=== PATIENT | female | born 1935 | race Caucasian/White ===

== ENCOUNTER 2016-12-15 12:50 | Inpatient (IN) | payer MEDICARE, BC ==
[~2016-12-15] VITALS: Ht 157.5 cm; Wt 59.1 kg
[~2016-12-15 12:50] MED LIST: ADVIL200 MG PO; AMLOPIDINE PO; ASPIR-LOW81 MG PO; ASPIRIN 81M81 MG/TA2 PO; BAUSCH OT; CALCIUM CITRAT200 MG PO; CALTRATE 600 +1 TAB PO; CENTRUM SILVER1 TA1 PO; CIPRO 500MG TA500 MG PO; COLACE50 MG PO; COUMADIN; DARVOCET-N-101 UDTAB PO; ELITE MAGNESIUM1 TAB PO; FERROUS SU325 MG/TAB PO; FLAGYL500 MG PO; GENTEAL0.32; GLUCOSAMINE & C1 CA2 PO; GLUCOSAMINE/CHONDROI PO; HYZAAR; HYZAAR 25 MG-101 TAB PO; KLOR-CON 1010 MEQ PO; MIRALAX PA17 GM/Dose PO; NORCO 325 MG-101 TAB PO; NORCO 325 MG-7.1 TAB PO; NORVASC 5MG5 MG/TAB PO; PERCOCET 325 MG1 TA2 PO; SENOKOT TABLET1 EA PO; SENOKOT8.6 MG PO; SINGULAIR 110 MG/TAB PO; SINGULAIR PO; TYLENOL 500MG500 MG PO; VICODIN 5/5001 UDTAB PO; ZETIA 10MG TAB10 MG PO; ZETIA10 MG PO; [UNRECOGNIZED DRUG - OTHER] OT
[2017-01-27] VITALS (11 sets, daily range): BP systolic 126–152; BP diastolic 60–75; PULSE 53–83; TEMP 97.8–98.2
[2017-01-27] MEDS ORDERED: HYZAAR 25 MG-101 TAB PO (06:54)
[2017-01-27] MEDS ORDERED: NORVASC 5MG5 MG/TAB PO (06:54)
[2017-01-27] MEDS ORDERED: CALCIUM 600-D 61 TAB PO (06:56)
[2017-01-27] MEDS ORDERED: MULTI VITAMINS1 TAB PO (06:56)
[2017-01-27] MEDS ORDERED: KLOR-CON M2020 MEQ PO (06:56)
[2017-01-27] MEDS ORDERED: ZETIA 10MG TAB10 MG PO (06:57)
[2017-01-27] MEDS ORDERED: MAGNESIUM250 M1 PO (06:57)
[2017-01-27] MEDS ORDERED: ASPIRIN E.C. 8181 MG PO (06:57)
[2017-01-27] MEDS ORDERED: COLACE 100100 MG/CAP PO (06:58)
[2017-01-27] MEDS ORDERED: ULTRAM 50MG TAB50 MG PO (06:58)
[2017-01-27] MEDS ORDERED: MIRALAX PA17 GM/Dose PO (06:59)
[2017-01-27] MEDS ORDERED: SINGULAIR 110 MG/TAB PO (06:59)
[2017-01-28 00:42] VITALS: BP 138/67; PULSE 59; TEMP 98.3
[2017-01-28 04:12] VITALS: BP 133/71; PULSE 63; TEMP 98
[2017-01-28 06:19] LABS: HEMATOCRIT 30.3 % (37.0-47.0); HEMOGLOBIN 10.3 g/dl (12.5-16.0)
[2017-01-28 08:23] VITALS: BP 138/50; PULSE 64; TEMP 97.9
[2017-01-28 11:45] VITALS: BP 150/60; PULSE 51; TEMP 98.8
[2017-01-28] MEDS ORDERED: ASPIRIN 32325 MG/TAB PO (11:59)
[2017-01-28] MEDS ORDERED: ROXICODONE 55 MG/TAB PO (12:00)
[2017-01-28] MEDS ORDERED: NORCO 325 MG-7.1 TAB PO (12:01)
== END 2017-01-28 14:10 | disposition home or self-care (01) | DRG 470 ==
LOC: JCC 01-27 06:40
PROVIDERS: Orthopaedic Surgery
PROC: 0SRC0J9 Replacement of Right Knee Joint with Synthetic Substitute, Cemented, Open Approach (ICD-10-PCS; principal; 2017-01-27 09:45)
DX: M17.11 Unilateral primary osteoarthritis, right knee (principal); Z85.3 Personal history of malignant neoplasm of breast; Z85.820 Personal history of malignant melanoma of skin; Z85.72 Personal history of non-Hodgkin lymphomas; Z96.652 Presence of left artificial knee joint
CPT/HCPCS: A9284; C1713; C1776; J0690; J1100; J2250; J2405; J2704; J3010; J3370; J7120

== ENCOUNTER 2017-01-25 15:40 | Outpatient (RCR) | payer MEDICARE, BC | END 2017-01-25 16:53 | disposition home or self-care (01) | LOC: WSPT 15:40 | DX: Z01.818 Encounter for other preprocedural examination (principal); M25.861 Other specified joint disorders, right knee | CPT/HCPCS: G8978-GP; G8979-GP ==

== ENCOUNTER 2017-03-25 13:45 | Outpatient (RCR) | payer MEDICARE, BC ==
[~2017-03-25 13:45] MED LIST changes: +ASPIRIN 32325 MG/TAB PO; +ASPIRIN E.C. 8181 MG PO; +CALCIUM 600-D 61 TAB PO; +COLACE 100100 MG/CAP PO; +KLOR-CON M2020 MEQ PO; +MAGNESIUM250 M1 PO; +MULTI VITAMINS1 TAB PO; +ROXICODONE 55 MG/TAB PO; +ULTRAM 50MG TAB50 MG PO
== END 2017-03-30 09:07 ==
LOC: WSPT 13:45
DX: Z47.1 Aftercare following joint replacement surgery (principal); Z96.651 Presence of right artificial knee joint
CPT/HCPCS: G8978-GP; G8979-GP; G8980-GP

== ENCOUNTER → 2018-08-09 | Outpatient (CLI) | payer MEDICARE, BC ==
[~2018-08-09] MED LIST changes: +EYE DROP ADVANC15 ML OP; +MASON NATURAL1200 MG PO; +PROBIOTIC ACID1 EAC3 PO; +SYSTANE BALANCE10 M1 OP
== END ==
LOC: MC.RAD 11:07
DX: Z12.31 Encounter for screening mammogram for malignant neoplasm of breast (principal); C50.912 Malignant neoplasm of unspecified site of left female breast; Z98.890 Other specified postprocedural states

== ENCOUNTER 2020-03-22 14:33 | Outpatient (RCR) | payer SELFPAY | END 2020-06-20 | disposition home or self-care (01) | LOC: COL.CR | DX: Z02.89 Encounter for other administrative examinations (principal) ==

== ENCOUNTER → 2020-05-22 | Outpatient (CLI) | payer MEDICARE, BC | LOC: MC.RAD 10:45 | DX: Z12.31 Encounter for screening mammogram for malignant neoplasm of breast (principal) ==

== ENCOUNTER 2020-07-02 07:04 | Day surgery (SDC) | payer MEDICARE, BC ==
[~2020-07-02] VITALS: Ht 154.9 cm; Wt 54.5 kg
[2020-07-02 07:42] VITALS: BP 144/76; PULSE 77; TEMP 98.2
[2020-07-02] MEDS ORDERED: KLOR-CON M2020 MEQ PO (07:56)
[2020-07-02] MEDS ORDERED: MULTIVITAMIN FO1 CAP PO (07:56)
[2020-07-02] MEDS ORDERED: TYLENOL 325MG325 MG PO (07:58)
[2020-07-02] MEDS ORDERED: ADVIL200 MG PO (07:59)
[2020-07-02] MEDS ORDERED: PROBIOTIC FORMU1 CAP PO (08:00)
[2020-07-02] MEDS ORDERED: COLACE 100100 MG/CAP PO (08:01)
[2020-07-02] MEDS ORDERED: MIRALAX119G PO (08:01)
[2020-07-02] MEDS ORDERED: SINGULAIR 110 MG/TAB PO (08:02)
[2020-07-02] MEDS ORDERED: SYSTANE 0.4%-0.1 SOL OP (08:03)
[2020-07-02] MEDS ORDERED: MASON NATURAL1200 MG PO (08:04)
[2020-07-02 09:10] VITALS: BP 140/71; PULSE 62; TEMP 97.6
--- NOTE | 2020-07-02 09:10 | NUR ---
TO BAY 3 PER CART FROM [facility]. ALERT ORIENTED X3, TALKING WITH STAFF. AMBULATED TO RECLINER WITH ASSIST AND TOLERATED WELL.
[2020-07-02 09:25] VITALS: BP 145/75; PULSE 67
--- NOTE | 2020-07-02 09:25 | NUR ---
ATE 100% AND TOLERATED WELL. DICONTINUED IV AND INT- CATHETER INTACT
--- NOTE | 2020-07-02 09:25 | NUR ---
RECEIVED MUFFIN AND COFFEE.
--- NOTE | 2020-07-02 09:50 | NUR ---
DR RODRIGUEZ INTO TALK WITH PATIENT
--- NOTE | 2020-07-02 09:55 | NUR ---
RECEIVED DISCHARGE INSTRUCTIONS AND VERBALIZED UNDERSTANDING PATIENT CALLED .
--- NOTE | 2020-07-02 10:25 | NUR ---
DISCHARGED PER WC BY NURSING STAFF TO PRIVATE CAR IN CARE OF BILL.
== END 2020-07-02 10:26 | disposition home or self-care (01) ==
LOC: SDCO 07:04
DX: D12.8 Benign neoplasm of rectum (principal); K57.30 Diverticulosis of large intestine without perforation or abscess without bleeding; I10 Essential (primary) hypertension; G47.33 Obstructive sleep apnea (adult) (pediatric); G89.29 Other chronic pain; Z92.21 Personal history of antineoplastic chemotherapy; Z85.3 Personal history of malignant neoplasm of breast; Z85.820 Personal history of malignant melanoma of skin; Z85.72 Personal history of non-Hodgkin lymphomas; Z96.653 Presence of artificial knee joint, bilateral; Z79.82 Long term (current) use of aspirin; Z88.5 Allergy status to narcotic agent
CPT/HCPCS: J2704; J7030

== ENCOUNTER → 2021-05-27 | Outpatient (CLI) | payer MEDICARE, BC ==
[~2021-05-27] MED LIST changes: +MIRALAX119G PO; +MULTIVITAMIN FO1 CAP PO; +PROBIOTIC FORMU1 CAP PO; +SYSTANE 0.4%-0.1 SOL OP; +TYLENOL 325MG325 MG PO
== END ==
LOC: MC.RAD 09:45
DX: Z12.31 Encounter for screening mammogram for malignant neoplasm of breast (principal)

== ENCOUNTER 2023-04-15 20:28 | Emergency (ER) | payer MEDICARE, BC ==
[~2023-04-15] VITALS: Ht 160 cm; Wt 59.1 kg
[~2023-04-15 20:28] MED LIST changes: +MAXITROL OPHTH3.5 GM OP; -PROBIOTIC FORMU1 CAP PO; +PROBIOTIC-MAJOR PO
[2023-04-15 20:32] VITALS: TEMP 98.5
[2023-04-15 22:53] VITALS: BP 194/91; PULSE 74
== END 2023-04-15 22:53 | disposition home or self-care (01) ==
LOC: COL.ER 20:28
DX: S00.03XA Contusion of scalp, initial encounter (principal); W01.10XA Fall on same level from slipping, tripping and stumbling with subsequent striking against unspecified object, initial encounter; Y92.480 Sidewalk as the place of occurrence of the external cause

== ENCOUNTER → 2023-07-13 | Outpatient (CLI) | payer MEDICARE, BC | LOC: MC.RAD 10:51 | DX: Z12.31 Encounter for screening mammogram for malignant neoplasm of breast (principal) ==